=== PATIENT | male | born 1975 ===

== ENCOUNTER 2021-01-13 03:11 | Inpatient (IN) | payer MEDICAID, SELFPAY ==
[2021-01-13 04:51] VITALS: BP 140/104; PULSE 104; RESP 17; TEMP 36.7; O2SAT 97
[2021-01-13 06:00] VITALS: BP 140/104; PULSE 104; RESP 17; TEMP 36.7; O2SAT 97
[2021-01-13] MEDS: thiamine 100 mg Tablet PO (08:31)
[2021-01-13] MEDS: folic acid 1 mg Tablet PO (08:31)
[2021-01-13] MEDS: multivitamin therapeutic Tablet 1 TAB PO (08:31)
[2021-01-13] MEDS: LORazepam 2 mg Tablet PO ×3 (08:31→23:38)
[2021-01-13 12:51] VITALS: BMI 28.2
[2021-01-13 14:00] VITALS: BP 126/80; PULSE 97; RESP 17; TEMP 36.9; O2SAT 97
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
--- NOTE | 2021-01-13 14:43 | PC.NURSE ---
Ativan 2 mg PO administered per CIWA protocol.
[2021-01-13 21:10] VITALS: BP 135/84; PULSE 78; RESP 17; TEMP 36.7; O2SAT 97
[2021-01-13] MEDS: trazodone 50 mg Tablet PO (23:37)
[2021-01-13] MEDS: OLANZapine 5 mg ODT PO (23:38)
[2021-01-14] VITALS (8 sets, daily range): BP systolic 129–182; BP diastolic 91–108; PULSE 106–120; RESP 14–23; TEMP 36.8–37.1; O2SAT 95–96; BMI 28.2
[2021-01-14] MEDS: haloperidol 5 mg Tablet PO ×2 (02:39→13:33)
[2021-01-14] MEDS: LORazepam 2 mg Tablet PO ×4 (04:34→16:42)
[2021-01-14] MEDS: thiamine 100 mg Tablet PO (10:31)
[2021-01-14] MEDS: folic acid 1 mg Tablet PO (10:31)
[2021-01-14] MEDS: multivitamin therapeutic Tablet 1 TAB PO (10:32)
[2021-01-14] MEDS: OLANZapine 5 mg ODT PO (11:58)
--- NOTE | 2021-01-14 12:55 | P.NPUPN_ITS ---
Subjective NPU Subjective: Interval history: Patient presents today being fairly unsteady on his feet, confused in conversation and seeming disoriented at times. He gave no dependable information about his circumstances, current use pattern but was able to identify that he had been drinking and he likely was in withdrawal. Mental Status Exam MSE Comments: This is an overweight white male with limited grooming and eye contact in hospital scrubs. No abnormal movements except for psychomotor retardation and gait instability. Mostly cooperative with exam in mild distress. Speech was decreased rate and volume and with slurring. Mood not described affect confused. Thought process disorganized. Thought content: Patient denied suicidal or homicidal ideation, there were no delusions reported but he seemed somewhat paranoid, he did appear to be attending to internal stimuli likely withdrawal phenomenon. Attention and concentration were impaired and memory was unreliable but none were formally tested. He is alert and oriented to person and place. Insight and judgment are impaired impulse control is impaired. Vitals/I&O/Wt Last Vital Signs Temp 98.0 F 01/13/21 21:10 Pulse 78 01/13/21 21:10 Resp 18 01/14/21 06:00 BP 135/84 01/13/21 21:10 Pulse Ox 97 01/13/21 21:10 Weight last 48 hrs Weight 99.79 kg Weight 99.79 kg A&P Assessment and plan (1) History of seizures: Status: Acute (2) Alcohol withdrawal: Status: Acute (3) Acute psychosis: Status: Acute (4) Alcohol withdrawal delirium: Status: Acute Additional A&P Information This is a 45-year-old white male who presents with altered mental status/psychosis/delirium likely secondary to alcohol withdrawal with reports of some suicidal thoughts but mostly appearing to be out of sorts secondary to discontinuation of alcohol. 1. Continue current medication. 2. Initiate CIWA protocol and be liberal with administration given his presentation. 3. Continue every 15 minute checks for safety. 4. Encourage individual, group and milieu therapies. 5. Encourage sober living treatment after discharge at the highest level of care to which she is willing to commit. Involuntary Hold Information 96 Hour Hold: 96 Hour Involuntary Admission: No Attestations NPU Medical Necessity Statement*: Psychiatric hospitalization is medically necessary to prevent access to lethal means, to reevaluate medication, and to coordinate a safe discharge. Likely length of stay is 3 to 5 days. Coding Level of Care Code Acute Real Estate Appraiser Supervisor for Chg Fwd Diagnoses History of seizures Z87.898 Alcohol withdrawal F10.239 Acute psychosis F23 Alcohol withdrawal delirium F10.231
--- NOTE | 2021-01-14 13:44 | PC.NURSE ---
po haldol 5mg was administered to the pt d/t pt becoming frantic and highly agitated. he tried to open both the single and the double doors, a side door and then took off at a fast jog down the [address]ae[address]. pt balance is poor d/t effects of detox and stability and safety is an issue.
--- NOTE | 2021-01-14 19:51 | PC.NURSE ---
Late Entry Patient has been confused and hallucinating throughout the day. he has been going in other patient's rooms and getting more and more combative throughout the day. Patient has been given a total of 6mg of PO Ativan, Haldol and Zyprexa with no improvement. Dr. Wahl was consulted and will be transferring patient to ICU.
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
--- NOTE | 2021-01-14 21:01 | PC.NURSE ---
TRANSFER IN [facility] Shy transported patient to ICU 9 via wheelchair. Pt slightly fidgety but compliant with transfer.
[2021-01-14] MEDS: PHENobarbital 130 mg/mL SDV 1 mL 60 MG IM ×2 (21:11→21:56)
[2021-01-14] MEDS: folic acid 1 MG, multivitamin inj 10 ML, thiamine 100 MG in sodium chloride 0.9% 1,000 ML 252.8 MG IV (21:41)
[2021-01-14] MEDS: D5-NS 0.45% + KCL 20 mEq 20 MEQ/1,000 ML BAG 75 MEQ IV (21:51)
--- NOTE | 2021-01-14 22:01 | PC.NURSE ---
PIV in FOOT Dr. Quiñonez at bedside and requested PIV insertion in L foot-- multiple BUE sticks unsuccessful. #[address] to L lateral foot-- Dr Quiñonez present. IVF started per orders.
[2021-01-14] MEDS: PHENobarbital 130 mg/mL SDV 1 mL IV ×3 (22:26→23:35)
[2021-01-14] MEDS: diphenhydrAMINE 50 mg/mL SDV 1mL IM (22:34)
--- NOTE | 2021-01-14 22:45 | PC.NURSE ---
PIV insertion #18 guage PIV placed to JEREMÍAS by Dr. Flores. Line flushes and draws back blood. Continuous IVF connected and infusing as ordered.
[2021-01-14 23:26] LABS: Basophils # 0.1 10^3/uL (0.0-0.1); Basophils % 0.5 %; Eosinophils # 0.1 10^3/uL (0.0-0.8); Eosinophils % 1.1 %; Hematocrit 36.7 % (42.0-52.0); Lymphocytes # 1.5 10^3/uL (0.8-4.8); Lymphocytes % 14.2 %; Mean Corpuscular HGB Conc 32.7 g/dL (30.0-36.0); Mean Corpuscular Hemoglobin 34.9 pg (28.0-34.0); Mean Corpuscular Volume 106.7 fl (80-94); Mean Platelet Volume 13.6 fL (7.4-10.4); Monocytes # 1.3 10^3/uL (0.2-0.9); Monocytes % 12.6 %; Neutrophils # 7.31 10^3/uL (1.8-7.7); Neutrophils % 70.4 %; Nucleated Red Blood Cells % 0 %; Platelet Count 71 10^3/cmm (130-400); Red Blood Count 3.44 10^6/uL (4.1-5.3); Red Cell Distribution Width 13.2 % (12.1-15.1); White Blood Count 10.4 10^3/uL (4.0-10.0)
[2021-01-14 23:38] LABS: INR 1.12 (0.8-1.2)
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
[2021-01-15] VITALS (96 sets, daily range): BP systolic 95–169; BP diastolic 66–134; PULSE 62–110; RESP 12–28; TEMP 36.6–37.2; O2SAT 91–100
[2021-01-15 00:13] LABS: Glucose Point of Care 126 mg/dL (70-110)
[2021-01-15] MEDS: PHENobarbital 130 mg/mL SDV 1 mL IV ×9 (00:18→09:31)
--- NOTE | 2021-01-15 00:20 | PC.NURSE ---
REASSESSMENT IM KETAMINE GIVEN DURING CODE 10. PT NOW RESTING CALMLY IN BED-- [address] SKIN TO WRISTS AND ANKLES-- CLEAN, DRY AND INTACT. DR SALTER AT BEDSIDE. PT CONNECTED TO CARDIAC, PULSE OX AND BP MONITOR-- VSS. LABS COLLECTED AND SENT TO LAB.
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
--- NOTE | 2021-01-15 00:49 | PC.NURSE ---
Linked stock med to ordered ketamine IM on MAY. One dose only given
--- NOTE | 2021-01-15 00:55 | W.PM.BREST ---
Face to Face: Restrn/Seclusion Events leading up to initiation: Combative/Striking out at staff or others Evaluation of patient's immediate situation: No signs of physical distress and Signs of psychological distress (still hallucinating, restless, less tachycardic, blood pressure improved) Patient reaction since intervention applied: Behaviors/threats have lessened, but still present Recent labs reviewed: No (no new labs yet but have been drawn) Review of medications: Yes Patient's current medical/behavioral condition: No new concerns since last ROS (same condition and concerns) Need for restraint or seclusion is: Continued Attending notified: Attending completed assessment
[2021-01-15 01:12] LABS: Alanine Aminotransferase 36 U/L (0-41); Alkaline Phosphatase 79 IU/L (40-130); Blood Urea Nitrogen 8 mg/dL (6-20); Calcium 9.2 mg/dL (8.5-10.5); Carbon Dioxide 26 mmol/L (22-29); Chloride 99 mmol/L (98-107); Globulin 2.9 g/dL (1.3-4.6); Glomerular Filtration Rate 180.6 mL/min (90-130); Glucose 100 mg/dL (65-115); Magnesium 1.4 mg/dL (1.7-2.3); Osmolality Calculated 282 mOsm/kg (285-295); Phosphorus 3.8 mg/dL (2.5-4.5); Sodium 137 mmol/L (136-145); Total Protein 6.9 g/dL (6.6-8.7)
[2021-01-15 01:13] LABS: Ammonia 30 umol/L (16-60)
[2021-01-15 01:18] LABS: Anion Gap 16.8 (5-19); Aspartate Amino Transferase 65 U/L (0-40); Potassium 4.8 mmol/L (3.5-5.1)
[2021-01-15 01:19] LABS: Creatine Phosphokinase 1151 U/L (39-308)
--- NOTE | 2021-01-15 01:50 | PC.NURSE ---
REASSESSMENT: PRN PHENOBARBITOL GIVEN Q 15 MINS ORDERED. PT NOW RESTING IN BED WITH EYES CLOSED. VSS. DR. SALTER PRESENT.
--- NOTE | 2021-01-15 01:51 | PC.NURSE ---
REASSESSMENT PT RESTING IN BED WITH EYES CLOSED-- OCCASIONAL PULLING AT RESTRAINTS AND FIDGETING WITH GARBLED SPEECH. DR. SALTER PRESENT. VITAL SIGNS STABLE.
--- NOTE | 2021-01-15 01:56 | PC.NURSE ---
RESTRAINTS PT CALM-- DR SALTER PRESENT. WILL REMOVE L LEG RESTRAINT. SITTER PRESENT AND WILL CONTINUE TO MONITOR.
--- NOTE | 2021-01-15 02:04 | PC.NURSE ---
REASSESSMENT PT RESTING IN BED. VITAL SIGNS STABLE. RESTRAINT REMOVED FROM LEFT ANKLE. SKIN CLEAN, DRY AND INTACT. BILATERAL WRIST RESTRAINTS CHECKED-- NO COMPLICATIONS. KELLEE PRESENT. DR SALTER PRESENT.
--- NOTE | 2021-01-15 02:05 | PC.NURSE ---
Urine Output Pt has not voided. Notified Dr. Quiñonez. No order for ward catheter at this time. Continue to monitor for output.
--- NOTE | 2021-01-15 02:07 | PC.NURSE ---
RESTRAINTS BILATERAL WRIST RESTRAINTS IN PLACE-- NO COMPLICATIONS NOTED SKIN CLEAN, DRY AND INTACT. VITAL SIGNS STABLE. RESPIRATIONS EVEN AND UNLABORED SITTER PRESENT. DR. JOIE GREWAL
--- NOTE | 2021-01-15 04:21 | PC.NURSE ---
AGITATION PT AGITATED, LEGS OVER RAIL AND ATTEMPTING TO PULL AT LINES. TANNER GOODMAN GAVE PHENOBARBITAL ORDERED. DR. SALTER PRESENT. BILATERAL WRIST RESTRAINTS ADJUSTED. SKIN CLEAN, DRY AND INTACT WITH NO REDNESS NOTED. SITTER PRESENT.
[2021-01-15] MEDS: magnesium sulfate premix 2 GM/50 ML PIGGYBACK IV (04:25)
[2021-01-15] MEDS: lactated ringers 1,000 ML 999 ML IV (04:25)
[2021-01-15] MEDS: ondansetron 4 MG Tablet PO (07:52)
[2021-01-15] MEDS: folic acid 1 mg Tablet PO (09:31)
[2021-01-15] MEDS: multivitamin therapeutic Tablet 1 TAB PO (09:31)
[2021-01-15] MEDS: pantoprazole DR 40 mg Tablet PO (09:31)
[2021-01-15] MEDS: thiamine 100 mg Tablet PO (09:31)
[2021-01-15 09:36] LABS: Glucose Point of Care 101 mg/dL (70-110)
--- NOTE | 2021-01-15 11:08 | PC.NURSE ---
Shortly after 8 am, patient woke up. He was restless, agitated, confused, and hallucinating. Stating he was hearing voices which were instructing him to kill himself and telling him that he was worthless. Was also seeing animals in the room and rambling nonsensically about a vacation in [place]. Mood is labile. Sometimes friendly but then quickly becoming agitated and paranoid. Making threats to and talking to people who are not present in the room. Nurse administered PRN phenobarbital as indicated.
--- NOTE | 2021-01-15 11:59 | PC.NURSE ---
Addendum entered by Baltazar Bolanos RN 01/15/21 12:02: Nurse offered the patient something to drin or eat to the patient. Nurse also offered a urinal. Patient declined all. Said he just wants to be let alone Original Note: Nurse offered the patient something to drin or eat to the patient. Patient declined. Said he just wants to be let alone.
[2021-01-15 12:01] LABS: Glucose Point of Care 79 mg/dL (70-110)
[2021-01-15] MEDS: D5-NS 0.45% + KCL 20 mEq 20 MEQ/1,000 ML BAG 75 MEQ IV (13:57)
--- NOTE | 2021-01-15 16:10 | P.NPUPN_ITS ---
Subjective NPU Subjective: Interval history: Patient presents today appearing to be tired likely secondary to his medication and his continuing withdrawal. Had a chance to talk with his nurse who reported significant agitation the night before with need for medication intervention including ketamine. After a trial of phenobarbital. This morning he received morphine barbital with industrial engineering a gitation and has been more calm through the day. We discussed a plan for him to return to the psychiatric unit once he was medically stable and that we would continue to follow. Mental Status Exam MSE Comments: This is a overweight versus obese white male in hospital gown with no eye contact and limited grooming. No abnormal movements except for psychomotor retardation. He was not interactive during the exam did not respond to this magnetic tape typewriter operator's vocalizations or physical contact. No aggressive means were undertaken. Vitals/I&O/Wt Last Vital Signs Temp 97.8 F 01/15/21 16:00 Pulse 79 01/15/21 16:00 Resp 20 H 01/15/21 16:00 BP 121/93 01/15/21 16:00 Pulse Ox 100 01/15/21 16:00 01/15/21 14:59 Intake Total 1000 / 1000 Balance 1000 / 1000 Weight last 48 hrs Weight 99.79 kg Data NPU : 01/14/21 23:05 01/16/21 04:41 A&P Additional A&P Information (1) History of seizures: (2) Alcohol withdrawal: (3) Acute psychosis: (4) Alcohol withdrawal delirium: Additional A&P Information This is a 45-year-old white male who presents with altered mental status/psychosis/delirium likely secondary to alcohol withdrawal with reports of some suicidal thoughts but mostly appearing to be out of sorts secondary to discontinuation of alcohol who was transferred to the ICU yesterday after this magnetic tape typewriter operator requested consultation. For increasing concerns that his alcohol withdrawal needed more aggressive management. 1. Continue current medication. 2. Agree with continued phenobarbital and other measures to manage his serious alcohol withdrawal. 3. I will continue to follow and likely transfer back to neuropsychiatric unit when medically stable. 4. Appreciate hospitalist assessment intervention and continued management of his alcohol withdrawal. 5. Encourage sober living treatment after discharge at the highest level of care to which he is willing to commit. Involuntary Hold Information 96 Hour Hold: 96 Hour Involuntary Admission: No Attestations NPU Medical Necessity Statement*: N/A. Please see primary team note for medical necessity, however likely need for continued inpatient acute psychiatric treatment after medically stable from his alcohol withdrawal. Coding Level of Care Code Acute Group Contract Analyst for Sujey Jon
--- NOTE | 2021-01-15 16:16 | P.PN_ITS ---
Subjective Subjective: Interval history: Overnight recurrent events noted. He was able to tell me that he drinks half a pint of vodka every day and here for detox has history of DTs, had limb restraints, becomes agitated easily, For now continue phenobarbital mild to moderate 130 mg every 30 minutes to 1 hour, severe withdrawal 260 mg IV every hour Hallucination reported by the staff as well, no nystagmus noted, gait was not tested Patient stated that he has no family and when I asked about emergency contact info he moved his neck to show the number tattooed on right side of the neck Vitals/I&O/Wt Last Vital Signs Temp 97.9 F 01/15/21 12:00 Pulse 71 01/15/21 13:00 Resp 14 01/15/21 13:00 BP 111/83 01/15/21 13:00 Pulse Ox 98 01/15/21 13:00 01/15/21 01/15/21 01/15/21 06:59 14:59 22:59 Intake Total 2061.2 / 2061.2 1000 / 1000 Balance 2061.2 / 2061.2 1000 / 1000 Weight last 48 hrs Weight 99.79 kg Physical Exam Narrative: EXAM NARRATIVE: Patient was seen in the ICU Does not have active coarse tremors or seizures Positive for hallucinations Active delirium with psychotic features S1, S2 sinus rhythm He is not tachycardic or hypotensive He would not allow me to examine him, gets easily agitated as soon as he put sure hand on his abdomen or chest Abdomen grossly looks normal complaint abdominal pain Patient does respond to verbal commands Answers my questions appropriately No audible stridor or wheezing Saturating well on room air Multiple skin tattoos Data : 01/14/21 23:05 01/15/21 00:48 A&P Assessment and plan (1) History of seizures: Status: Chronic (2) Alcohol withdrawal delirium: Status: Acute (3) Acute psychosis: Status: Acute (4) Aggressive behavior: Status: Acute Additional A&P Information Acute psychosis with underlying bipolar disorder/major depressive disorder Alcohol abuse Aggressive behavior Delirium related to alcohol withdrawal Wernicke's encephalopathy? Plan Phenobarbital for alcohol withdrawal 130 mg for mild to moderate every 30 minutes to 1 hour for severe withdrawal to 60 mg every 30 minutes to 1 hour Use phenobarbital and avoid Ativan for now to avoid oversedation Continue thiamine and folic acid If hallucination and delirium does not improve in the next 48 hours would consider encephalopathy work-up Continue ICU management High risk for DTs, high risk for intubation We will keep him on clear liquid diet for now Full code For major depressive disorder/bipolar will follow-up with psychiatry recommendation 96-hour hold Would avoid more than 30mg/kg dose to avoid phenobarb toxicity Attestations Medical Necessity Statement*: Continue icu mangement Time Spent in Patient Care: 16 - 35 minutes Coding Level of Care Code Acute Full Stack Net Developer for Sujey Jon Diagnoses History of seizures Z87.898 Alcohol withdrawal delirium F10.231 Acute psychosis F23 Aggressive behavior R46.89
--- NOTE | 2021-01-15 16:20 | PC.RESP ---
SMOKING CESSATION INFORMATION SENT TO PATIENT.
[2021-01-15 17:04] LABS: Glucose Point of Care 84 mg/dL (70-110)
--- NOTE | 2021-01-15 18:03 | PC.NURSE ---
Shift Summary: Patient rested in bed throughout most of the day. Initially, patient was agitated and hallucinating. Phenobarbital given as indicated. Last dose was given at 0930. Patient has rested in bed since then. Has has been withdrawn and depressed throughout the day. Did use the urinal this morning and had 100mL of output. Patient has refused meals throughout the day.
[2021-01-15] MEDS: PHENobarbital 32.4 mg Tablet 97.2 MG PO (23:38)
[2021-01-16] VITALS (62 sets, daily range): BP systolic 105–147; BP diastolic 63–109; PULSE 76–111; RESP 14–31; TEMP 36.9–37.3; O2SAT 93–100; BMI 28.7
[2021-01-16] MEDS: D5-NS 0.45% + KCL 20 mEq 20 MEQ/1,000 ML BAG 75 MEQ IV (02:13)
--- NOTE | 2021-01-16 02:21 | PC.NURSE ---
Shift Note Frequent safety and comfort rounds continue. Orders and/or nursing care completed as indicated. Patient monitored for response to intervention and treatment(s). Education provided includes fall safety, do no harm to staff or self, medications with side effects, orientation, compliance with care, goals of care. Patient slept good first part of shift, wet bed and when awakened he became very tearful expressing the sadness it brought upon him when reflecting on the pain he has caused his family and vis versa. This nurse sat at beside and listened to concerns. After this nurse was able use distraction to deescalate increasingly expressive feelings and agitation by asking patient if he was thirsty and would like to change wet clothing and linens. Security called to bedside for standby assist if needed when behaviors started to escalate. Pt cooperative with care with redirection and education. Patient did state stop, let me try to kill myself. This nurse again redirected patient to calm and reeducated on do no harm to self or staff. Patient would not verbalize understanding of this but stopped fidgeting and sat on edge of bed till calm enough to proceed with changing linens and wet clothes. Patient than transferred back to bed and when clean and dry patient started to relax and was able to rest with his eyes closed again. Will continue to monitor.
[2021-01-16 04:58] LABS: Glucose Point of Care 253 mg/dL (70-110)
[2021-01-16 05:08] LABS: Basophils # 0.1 10^3/uL (0.0-0.1); Basophils % 0.6 %; Eosinophils # 0.3 10^3/uL (0.0-0.8); Eosinophils % 3.1 %; Hematocrit 34.2 % (42.0-52.0); Lymphocytes # 1.2 10^3/uL (0.8-4.8); Lymphocytes % 14.8 %; Mean Corpuscular HGB Conc 32.2 g/dL (30.0-36.0); Mean Corpuscular Hemoglobin 35.1 pg (28.0-34.0); Mean Corpuscular Volume 109.3 fl (80-94); Mean Platelet Volume 11.7 fL (7.4-10.4); Monocytes % 12.3 %; Neutrophils # 5.71 10^3/uL (1.8-7.7); Neutrophils % 67.9 %; Nucleated Red Blood Cells % 0 %; Platelet Count 134 10^3/cmm (130-400); Red Blood Count 3.13 10^6/uL (4.1-5.3); White Blood Count 8.4 10^3/uL (4.0-10.0)
[2021-01-16 05:23] LABS: Alanine Aminotransferase 27 U/L (0-41); Albumin Level 3.1 g/dL (3.5-5.2); Alkaline Phosphatase 65 IU/L (40-130); Aspartate Amino Transferase 34 U/L (0-40); Blood Urea Nitrogen 6 mg/dL (6-20); Calcium 7.9 mg/dL (8.5-10.5); Carbon Dioxide 23 mmol/L (22-29); Globulin 2.7 g/dL (1.3-4.6); Glomerular Filtration Rate 233.7 mL/min (90-130); Glucose 121 mg/dL (65-115); Magnesium 1.7 mg/dL (1.7-2.3); Phosphorus 3.3 mg/dL (2.5-4.5); Total Bilirubin 0.6 mg/dL (0.15-1.2); Total Protein 5.8 g/dL (6.6-8.7)
[2021-01-16 05:26] LABS: Potassium 3.7 mmol/L (3.5-5.1)
[2021-01-16 06:19] LABS: Anion Gap 11.7 (5-19); Chloride 103 mmol/L (98-107); Osmolality Calculated 277 mOsm/kg (285-295); Sodium 134 mmol/L (136-145)
[2021-01-16 06:22] LABS: Creatine Phosphokinase 349 U/L (39-308)
[2021-01-16 07:51] LABS: Slide Review Slide Review Perform
[2021-01-16] MEDS: multivitamin therapeutic Tablet 1 TAB PO (08:59)
[2021-01-16] MEDS: folic acid 1 mg Tablet PO (08:59)
[2021-01-16] MEDS: thiamine 100 mg Tablet PO (08:59)
[2021-01-16] MEDS: pantoprazole DR 40 mg Tablet PO (08:59)
--- NOTE | 2021-01-16 15:01 | PC.NURSE ---
Family contact: Spoke to patient's mother today at [phone]. received okay form patient to give her information. Nurse gave status update. Currently stable. Withdrawn symptoms have subsided and medication no longer needed to manage symptoms. XUrrently waiting on transfer orders to go to NPU. Patient is on a 96 hour hold due to suicidal threats
--- NOTE | 2021-01-16 15:10 | PC.NURSE ---
SHift SUmmary: patient has rested in bed throughout the day. Slept most of the time. No hallucinations reported. No agitation. No signs of withdrawal noted. Family has been updated. overall, uneventful shift.
--- NOTE | 2021-01-16 16:47 | P.PN_ITS ---
Subjective Subjective: Interval history: Patient is not requiring wrist restraints anymore, overnight was relatively calm still experiencing hallucinations however this morning endorsing feeling better and very cooperative and pleasant during my evaluation He can be transferred out to you today I have discontinued IV phenobarbital he did receive total of 1800 mg I would keep him on 100 mg of phenobarbital p.o. regimen in neuropsychiatric unit Dr. Quinonez updated Vitals/I&O/Wt Last Vital Signs Temp 99.2 F 01/16/21 08:45 Pulse 95 01/16/21 15:00 Resp 25 H 01/16/21 15:00 BP 121/73 01/16/21 15:00 Pulse Ox 97 01/16/21 15:00 01/16/21 01/16/21 01/16/21 06:59 14:59 22:59 Intake Total 920 / 1920 1750 / 1750 Output Total 800 / 800 Balance 920 / 1920 950 / 950 Physical Exam Narrative: EXAM NARRATIVE: Patient was laying supine No audible stridor or wheezing Coarse tremors noted of extremities No seizure-like activity Able to answer my questions appropriately Nonfocal neuro exam S1, S2 sinus rhythm Hemodynamically stable Multiple skin tattoos EOMI, PERRLA Abdomen soft Has bruise around right fifth digit no active sign of cellulitis Data : 01/16/21 04:41 01/16/21 04:41 A&P Assessment and plan (1) Aggressive behavior: Status: Acute (2) History of seizures: Status: Chronic (3) Nicotine dependence, cigarettes, uncomplicated: Status: Chronic (4) Alcohol withdrawal delirium: Status: Acute (5) Acute psychosis: Status: Acute Additional A&P Information Alcohol withdrawal Coarse tremors Psychosis/delirium Patient has responded exceptionally well to phenobarbital IV regimen, I will transfer him out of ICU to neuro psychiatric unit, Dr. Urena updated For his mild withdrawal symptoms I would keep him on 100 mg of phenobarbital p.o. regimen which can be repeated every 2 hours in next 24 hours if he stays clinically stable will change phenobarbital to twice a day regimen, I will follow along Continue thiamine and folic acid for alcohol-related delirium Phenobarbital level within normal range I would avoid benzodiazepines to avoid oversedation Regular diet Discontinue one-to-one supervision Full code DVT prophylaxis: Lovenox Right fifth digit bruised most likely during code 10 no active sign of ce llulitis, in case of any swelling would recommend x-ray Attestations Medical Necessity Statement*: Transfer to npu Time Spent in Patient Care: 16 - 35 minutes Coding Level of Care Code Acute Human Resources Operations Specialist for Sujey Fwd Diagnoses Aggressive behavior R46.89 History of seizures Z87.898 Nicotine dependence, cigarettes, uncomplicated F17.210 Alcohol withdrawal delirium F10.231 Acute psychosis F23
--- NOTE | 2021-01-16 19:02 | PC.NURSE ---
report given to Barbara at NPU. Transferred patient to NPU via wheel chair. IV line removed. Monitoring devices removed. Patient is in green scrubs. Transfer to NPU was uneventful.
--- NOTE | 2021-01-16 21:15 | P.NPUPN_ITS ---
Subjective NPU Subjective: Interval history: Patient presents today having been transferred back to the neuropsychiatric unit clearly having thoughts about this time they are there peppered with his delirium reporting some girl in [place] not treating him well. But also identifying that he does not remember parts of it. He does remember them giving him ketamine or initiating phenobarbital to help him with his spiraling withdrawal. He continues to see the last 96 hours as him being fairly normal and people deciding to intervene with him when it was unnecessary. We discussed trying to separate what his psychosis and what was delirium and consider what we need to do with his medication moving forward with some possible collateral information from his family. Mental Status Exam MSE Comments: This is an overweight white male with limited grooming and eye contact in hospital scrubs. No abnormal movements except for psychomotor retardation. Mostly cooperative with exam in mild distress. Speech was decreased rate and volume and with less slurring. Mood described as I am fine as long as no one is messing with me, affect confused. Thought process more organized. Thought content: Patient denied suicidal or homicidal ideation, there were no delusions reported but he seemed somewhat paranoid, he denied current auditory or visual hallucinations. Attention and concentration were improving and memory was unreliable but none were formally tested. He is alert and oriented to person and place. Insight and judgment are impaired impulse control is impaired. Vitals/I&O/Wt Last Vital Signs Temp 99.2 F 01/16/21 08:45 Pulse 95 01/16/21 15:00 Resp 25 H 01/16/21 15:00 BP 121/73 01/16/21 15:00 Pulse Ox 97 01/16/21 15:00 01/16/21 01/16/21 01/16/21 06:59 14:59 22:59 Intake Total 920 / 1920 1750 / 1750 600 / 2350 Output Total 800 / 800 Balance 920 / 1920 950 / 950 600 / 1550 Weight last 48 hrs Weight 90.718 kg Data NPU : 01/16/21 04:41 01/16/21 04:41 A&P Additional A&P Information (1) History of seizures: (2) Alcohol withdrawal: (3) Acute psychosis: (4) Alcohol withdrawal delirium: Additional A&P Information This is a 45-year-old white male who presents with altered mental stat us/psychosis/delirium likely secondary to alcohol withdrawal with reports of some suicidal thoughts but mostly appearing to be out of sorts secondary to discontinuation of alcohol who was transferred to the ICU yesterday after this creative services writer requested consultation. For increasing concerns that his alcohol withdrawal needed more aggressive management. 1. Continue current medication. We will attempt to get a better sense of his history with antipsychotics and out of best assist is current mental health functioning. 2. Continue every 15 minute checks for safety. 3. Encourage individual, group and milieu therapies. 4. Encourage sober living treatment after discharge at the highest level of ca re to which he is willing to commit. 5. Agree with continued phenobarbital and other measures to manage his serious alcohol withdrawal. . Involuntary Hold Information 96 Hour Hold: 96 Hour Involuntary Admission: No Attestations NPU Medical Necessity Statement*: Psychiatric hospitalization is medically necessa ry to prevent access to lethal means, to reevaluate medication, and to coordinate a safe discharge. Likely length of stay is 3 to 5 days. Coding Level of Care Code Acute Search Director for Sujey Jon
--- NOTE | 2021-01-16 21:27 | PC.NURSE ---
Nurse note: During assessment this evening; Pt c/o visual hallucinations stating that he sees all kinds of critters everywhere. Denies SI or HI. Slight tremors noted in hands(barely visible, more felt.) Currently sitting quietly in hallway. Denies needs at this time.
[2021-01-17 06:00] VITALS: BP 132/88; PULSE 67; RESP 17; O2SAT 95
[2021-01-17] MEDS: LORazepam 2 mg Tablet PO (10:44)
[2021-01-17] MEDS: thiamine 100 mg Tablet PO (10:44)
[2021-01-17] MEDS: pantoprazole DR 40 mg Tablet PO (10:45)
[2021-01-17] MEDS: folic acid 1 mg Tablet PO (10:45)
[2021-01-17] MEDS: multivitamin therapeutic Tablet 1 TAB PO (10:45)
[2021-01-17] MEDS: haloperidol 5 mg Tablet PO (10:48)
--- NOTE | 2021-01-17 11:12 | NPU.GN ---
[facility] Topic: Meditation Psych Education General Mood of Group: Yared did attend group this morning and did participate in meditation group. Yared shared a bit about himself with this investigative writer and the rest of t he patients in group. Yared was interested in [facility] services this investigative writer assisted patient in filling out the intake form for [facility] services. Intake packet for this patient is completed. Yared was observed this morning being in pain and having a hard time walking. Yared did report that he did not get his medication last night or this morning for pain or for his mental health. It was reported back to nursing staff about this patient wanting his medications. Yared seems as though he does not have much support or stability within his life and is at NPU to get on psych medications and to get clean. This investigative writer did mention [facility] program as well to this patient. This patient needs all resources that are available to him to assists him in stability and a better quality of living for his physical, mental health diagnosis, food stamps, housing, therapist, and ect. Yared does need to work on his hygiene as is was poor this morning.
[2021-01-17] MEDS: acetaminophen 500 mg Tablet PO (12:51)
[2021-01-17] MEDS: nicotine 21 mg Patch 1 PATCH TRANSDERMA (12:51)
--- NOTE | 2021-01-17 13:28 | PC.NURSE ---
PATIENT REPORTING HE TAKES THE FOLLOWING MEDICATIONS TO CONTROL A SEIZURE DISORDER: HALDOL 1MG DAILY, SEROQUEL 50MG BID AND DEPAKOTE 50MG DAILY. HE IS NOT ABLE TO GIVE ME PHARMACY OR PHYSICIAN THAT HE HAS USED TO GET THE MEDICATIONS FILLED. HE STATES HE HAS LAST HAD THEM FROM THE [facility]. GOOGLED [facility] #[phone] AND THEY HAVE NEVER HAD A PIERRE GEORGEDLER BOOKED IN TO THEIR ASSISTED. PATIENT IS LISTED HOMELESS AND REPORTS TRAVELS BY JUMPING TRAINS AND DOES NOT HAVE A PRIVATE PHYSICIAN.
[2021-01-17 14:00] VITALS: BP 115/72; PULSE 71; RESP 18; TEMP 36.8; O2SAT 96
--- NOTE | 2021-01-17 17:43 | W.PM.NPUPNS ---
Subjective NPU Subjective: Interval history: Patient presents today reporting that we have been helping with his withdrawal but he is hoping to help him with his psychiatric condition. He can give no clear information about where he got his prescription filled but he does believe he was on Haldol before, cerebral before and possibly Depakote. We discussed the risk-benefit and alternatives of a trial of Geodon and he understood agreed proceed as documented in his note. Mental Status Exam MSE Comments: This is an overweight white male with limited grooming and eye contact in hospital scrubs. No abnormal movements except for psychomotor retardation. Mostly cooperative with exam in mild distress. Speech was decreased rate and volume and with less slurring. Mood described okay, affect confused. Thought process more organized. Thought content: Patient denied suicidal or homicidal ideation, there were no delusions reported but he seemed somewhat paranoid, he denied current auditory or visual hallucinations. Attention and concentration were improving and memory was unreliable but none were formally tested. He is alert and oriented to person and place. Insight and judgment are impaired impulse control is impaired. Vitals/I&O/Wt Last Vital Signs Temp 98.8 F 01/17/21 20:32 Pulse 69 01/17/21 20:32 Resp 19 H 01/17/21 20:32 BP 119/82 01/17/21 20:32 Pulse Ox 97 01/17/21 20:32 Weight last 48 hrs Weight 90.718 kg Data NPU : 01/16/21 04:41 01/16/21 04:41 A&P Additional A&P Information (1) History of seizures: (2) Alcohol withdrawal: (3) Acute psychosis: (4) Alcohol withdrawal delirium: Additional A&P Information This is a 45-year-old white male who presents with altered mental status/psychosis/delirium likely secondary to alcohol withdrawal with reports of some suicidal thoughts but mostly appearing to be out of sorts secondary to discontinuation of alcohol who was transferred to the ICU yesterday after this blurb writer requested consultation. For increasing concerns that his alcohol withdrawal needed more aggressive management. 1. Continue current medication. start geodon 40 mg po bid with meals. 2. Continue every 15 minute checks for safety. 3. Encourage individual, group and milieu therapies. 4. Encourage sober living treatment after discharge at the highest level of care to which he is willing to commit. 5. Agree with continued phenobarbital and other measures to manage his serious alcohol withdrawal. Involuntary Hold Information 96 Hour Hold: 96 Hour Involuntary Admission: No Attestations NPU Medical Necessity Statement*: Psychiatric hospitalization is medically necessary to prevent access to lethal means, to reevaluate medication, and to coordinate a safe discharge. Likely length of stay is 2-4 days. Coding Level of Care Code Acute Poison Information Specialist for Sujey Jon
[2021-01-17 20:32] VITALS: BP 119/82; PULSE 69; RESP 19; TEMP 37.1; O2SAT 97
[2021-01-17] MEDS: OLANZapine 5 mg ODT PO (21:15)
[2021-01-17] MEDS: hyDROXYzine 25 mg Capsule 50 MG PO (21:15)
--- NOTE | 2021-01-17 23:47 | PC.NURSE ---
Administered hydroxyzine 50mg PO for anxiety and zyprexa 5mg PO for agitation per patient request. Medication effective, patient resting with eyes closed in bed with equal, nonlabored respirations
--- NOTE | 2021-01-18 04:03 | PC.NURSE ---
Patient in bed but tense and anxious upon approach at start of shift. Cooperative with evening assessments. Endorses AH, command in nature, telling him to hurt self. Declines any intent or urges to act on this. Did state he would like PRNs to help. Contracted for safety. Patient did take PRN medications. Has been in bed resting with eyes closed throughout remainder of night. No further complaints voiced. No signs of distress noted.
[2021-01-18 06:00] VITALS: BP 117/71; PULSE 73; RESP 18; TEMP 36.9; O2SAT 96
[2021-01-18] MEDS: multivitamin therapeutic Tablet 1 TAB PO (09:50)
[2021-01-18] MEDS: pantoprazole DR 40 mg Tablet PO (09:50)
[2021-01-18] MEDS: thiamine 100 mg Tablet PO (09:51)
[2021-01-18] MEDS: folic acid 1 mg Tablet PO (09:51)
[2021-01-18] MEDS: ziprasidone hcl 40 mg Capsule PO ×2 (09:51→17:14)
--- NOTE | 2021-01-18 11:56 | NPU.GN ---
[facility] Topic:Meditation/ Depression Nilo General Mood of Group: Yared did attend group today and did very well. He participated in group with others and enjoyed the meditation and group activity. Yared seem to be in a good mood today and mentally stable.
[2021-01-18 14:00] VITALS: BP 136/94; PULSE 93; RESP 18; TEMP 36.6; O2SAT 98
--- NOTE | 2021-01-18 17:00 | P.NPUPN_ITS ---
Subjective NPU Subjective: Interval history: Patient presents today reporting that he is doing okay with the Geodon with no side effects but was very focused on other medications that he feels have been effective for him. He reports he always did really well with the Depakote. We discussed the risk benefits and alternatives of initiating Depakote ER 500 mg p.o. nightly and he understood and agreed to proceed as is documented in this note. We discussed holding on the Haldol and checking the records of [facility]intermediate to see what the medications were exactly. He was lobbying for all medications being started at once but could not give clarity as to the doses. Mental Status Exam MSE Comments: This is an overweight white male with limited grooming and eye contact in hospital scrubs. No abnormal movements except for psychomotor retardation. Mostly cooperative with exam in mild distress. Speech was decreased rate and volume and with less slurring. Mood described I am here, affect subdued. Thought process more organized. Thought content: Patient denied suicidal or homicidal ideation, there were no delusions reported but he seemed somewhat paranoid, he denied current auditory or visual hallucinations. Attention and concentration were improving and memory was unreliable but none were formally tested. He is alert and oriented to person and place. Insight and judgment are impaired impulse control is impaired. Vitals/I&O/Wt Last Vital Signs Temp 97.6 F 01/18/21 21:12 Pulse 87 01/18/21 21:12 Resp 17 01/18/21 21:12 BP 118/74 01/18/21 21:12 Pulse Ox 96 01/18/21 21:12 Data NPU : 01/16/21 04:41 01/16/21 04:41 A&P Additional A&P Information (1) History of seizures: (2) Alcohol withdrawal: (3) Acute psychosis: (4) Alcohol withdrawal delirium: Additional A&P Information This is a 45-year-old white male who presents with altered mental status/psychosis/delirium likely secondary to alcohol withdrawal with reports of some suicidal thoughts but mostly appearing to be out of sorts secondary to discontinuation of alcohol who was transferred to the ICU yesterday after this insurance writer requested consultation. For increasing concerns that his alcohol withdrawal needed more aggressive management. 1. Continue current medication. Started Geodon 40 mg p.o. twice daily with meals. And Depakote ER 500 mg p.o. nightly on 01/18/2021 2. Continue every 15 minute checks for safety. 3. Encourage individual, group and milieu therapies. 4. Encourage sober living treatment after discharge at the highest level of care to which he is willing to commit. 5. Agree with continued phenobarbital and other measures to manage his serious alcohol withdrawal. Involuntary Hold Information 96 Hour Hold: 96 Hour Involuntary Admission: No Attestations NPU Medical Necessity Statement*: Psychiatric hospitalization is medically necessary to prevent access to lethal means, to reevaluate medication, and to coordinate a safe discharge. Likely length of stay is 2-4 days. Coding Level of Care Code Acute Bank Credit Card Collection Clerk for Sujey Jon
[2021-01-18] MEDS: divalproex ER 500 mg Tablet (24H) PO (20:12)
[2021-01-18] MEDS: OLANZapine 5 mg ODT PO (20:12)
[2021-01-18 21:12] VITALS: BP 118/74; PULSE 87; RESP 17; TEMP 36.4; O2SAT 96
[2021-01-19 06:00] VITALS: RESP 17
[2021-01-19] MEDS: ziprasidone hcl 40 mg Capsule PO ×2 (06:44→17:19)
[2021-01-19] MEDS: folic acid 1 mg Tablet PO (08:58)
[2021-01-19] MEDS: pantoprazole DR 40 mg Tablet PO (08:58)
[2021-01-19] MEDS: multivitamin therapeutic Tablet 1 TAB PO (08:58)
[2021-01-19] MEDS: thiamine 100 mg Tablet PO (08:58)
--- NOTE | 2021-01-19 13:37 | NPU.GN ---
[facility] Topic:[place] Psych Education General Mood of Group: Yared did not attend group this morning he wanted to sleep.
[2021-01-19 14:00] VITALS: BP 123/75; PULSE 87; RESP 17; TEMP 37.8; O2SAT 94
--- NOTE | 2021-01-19 16:54 | W.PM.NPUPNS ---
Subjective NPU Subjective: Interval history: Patient is today reporting that things are going okay. He continues to be quite frustrated that we did just medications he mentioned Augmentin that he believes he was on before and just move on. We discussed the process by which we initiate medications for people have been on for a while. We also have made attempts to try to verify the fact these medications he had been taking in the past. We discussed the fact that outside Haldol with the initiation of Seroquel 50 mg p.o. twice daily discussed the risk benefits and alternatives and he understood and agreed proceed as is documented in this note, the only thing he has been started on is the Haldol. Currently he is on Geodon and we discussed seeing if it would be effective before possibly switching it out for Haldol. And given the significant withdrawal he was experiencing there are other more important issues in his treatment in the beginning. Mental Status Exam MSE Comments: This is an overweight white male with limited grooming and eye contact in hospital scrubs. No abnormal movements except for psychomotor retardation. Mostly cooperative with exam in no acute distress. Speech was decreased rate and volume and with less slurring. Mood described frustrated, affect congruent. Thought process more organized. Thought content: Patient denied suicidal or homicidal ideation, there were no delusions reported but he seemed somewhat paranoid, he endorsed current auditory but denied visual hallucinations. Attention and concentration were improving and memory was more reliable but none were formally tested. He is alert and oriented x3. Insight and judgment are improving, impulse control is limited. Vitals/I&O/Wt Last Vital Signs Temp 98.0 F 01/19/21 21:57 Pulse 103 H 01/19/21 21:57 Resp 18 01/19/21 21:57 BP 139/94 01/19/21 21:57 Pulse Ox 96 01/19/21 21:57 Data NPU : 01/16/21 04:41 01/16/21 04:41 A&P Additional A&P Information (1) History of seizures: (2) Alcohol withdrawal: (3) Acute psychosis: (4) Alcohol withdrawal delirium: Additional A&P Information This is a 45-year-old white male who presents with altered mental status/psychosis/delirium likely secondary to alcohol withdrawal with reports of some suicidal thoughts but mostly appearing to be out of sorts secondary to discontinuation of alcohol who was transferred to the ICU yesterday after this pattern chart writer requested consultation. For increasing concerns that his alcohol withdrawal needed more aggressive management. 1. Continue current medication. Started Geodon 40 mg p.o. twice daily with meals. And Depakote ER 500 mg p.o. nightly on 01/18/2021. Started Seroquel 50 mg p.o. twice daily. 2. Continue every 15 minute checks for safety. 3. Encourage individual, group and milieu therapies. 4. Encourage sober living treatment after discharge at the highest level of care to which he is willing to commit. 5. Agree with continued phenobarbital and other measures to manage his serious alcohol withdrawal. Involuntary Hold Information 96 Hour Hold: 96 Hour Involuntary Admission: No Attestations NPU Medical Necessity Statement*: Psychiatric hospitalization is medically necessary to prevent access to lethal means, to reevaluate medication, and to coordinate a safe discharge. Likely length of stay is 2-4 days. Coding Level of Care Code Acute Line Tester for Sujey Jon
[2021-01-19] MEDS: divalproex ER 500 mg Tablet (24H) PO (20:13)
[2021-01-19] MEDS: OLANZapine 5 mg ODT PO (20:14)
[2021-01-19] MEDS: trazodone 50 mg Tablet PO (20:14)
[2021-01-19] MEDS: quetiapine 25 mg Tablet 50 MG PO (20:49)
[2021-01-19 21:57] VITALS: BP 139/94; PULSE 103; RESP 18; TEMP 36.7; O2SAT 96
[2021-01-20 06:00] VITALS: RESP 16
[2021-01-20] MEDS: ziprasidone hcl 40 mg Capsule PO ×2 (06:38→18:16)
--- NOTE | 2021-01-20 08:00 | W.PM.NPUPNS ---
Subjective NPU Subjective: Interval history: Patient continues his focus on medications. He reports a plan to get back to work and productivity and was trying to ensure that he was on his medications now. We discussed the plan to see how he does on the Geodon with his other medications on board to avoid him being on an older medication like Haldol. We did discuss that if he really was feeling like the Geodon was not effective communication then could ultimately make a change prior to discharge. Mental Status Exam MSE Comments: This is an overweight white male with limited grooming and eye contact in hospital scrubs. No abnormal movements except for mild psychomotor retardation. Mostly cooperative with exam in no acute distress. Speech was more normal rate and volume. Mood described still frustrated, affect congruent. Thought process more organized. Thought content: Patient denied suicidal or homicidal ideation, there were no delusions reported but he seemed somewhat paranoid, he endorsed current auditory but denied visual hallucinations. Attention and concentration were improving and memory was more reliable but none were formally tested. He is alert and oriented x3. Insight and judgment are improving, impulse control is limited. Vitals/I&O/Wt Last Vital Signs Temp 98.0 F 01/19/21 21:57 Pulse 103 H 01/19/21 21:57 Resp 16 01/20/21 06:00 BP 139/94 01/19/21 21:57 Pulse Ox 96 01/19/21 21:57 Data NPU : 01/16/21 04:41 01/16/21 04:41 A&P Additional A&P Information (1) History of seizures: (2) Alcohol withdrawal: (3) Acute psychosis: (4) Alcohol withdrawal delirium: Additional A&P Information This is a 45-year-old white male who presents with altered mental status/psychosis/delirium likely secondary to alcohol withdrawal with reports of some suicidal thoughts but mostly appearing to be out of sorts secondary to discontinuation of alcohol who was transferred to the ICU yesterday after this magazine writer requested consultation. For increasing concerns that his alcohol withdrawal needed more aggressive management. 1. Continue current medication. Started Geodon 40 mg p.o. twice daily with meals. And Depakote ER 500 mg p.o. nightly on 01/18/2021. Seroquel 50 mg p.o. twice daily . 2. Continue every 15 minute checks for safety. 3. Encourage individual, group and milieu therapies. 4. Encourage sober living treatment after discharge at the highest level of care to which he is willing to commit. 5. Alcohol withdrawal has resolved. Involuntary Hold Information 96 Hour Hold: 96 Hour Involuntary Admission: No Attestations NPU Medical Necessity Statement*: Psychiatric hospitalization is medically necessary to prevent access to lethal means, to reevaluate medication, and to coordinate a safe discharge. Likely length of stay is 2-3 days. Coding Level of Care Code Acute Fermenting Cellars Supervisor for Sujey Jon
[2021-01-20] MEDS: quetiapine 25 mg Tablet 50 MG PO ×2 (10:38→18:16)
[2021-01-20] MEDS: folic acid 1 mg Tablet PO ×2 (10:39→11:09)
[2021-01-20] MEDS: multivitamin therapeutic Tablet 1 TAB PO (10:39)
[2021-01-20] MEDS: pantoprazole DR 40 mg Tablet PO (10:39)
[2021-01-20] MEDS: nicotine 21 mg Patch 1 PATCH TRANSDERMA (11:08)
[2021-01-20] MEDS: thiamine 100 mg Tablet PO (11:10)
[2021-01-20 14:00] VITALS: RESP 17
[2021-01-20] MEDS: divalproex ER 500 mg Tablet (24H) PO (20:06)
[2021-01-20] MEDS: hyDROXYzine 25 mg Capsule 50 MG PO (20:06)
[2021-01-20] MEDS: trazodone 50 mg Tablet PO (20:07)
[2021-01-20 22:00] VITALS: BP 137/92; PULSE 97; RESP 16; TEMP 36.7; O2SAT 97
[2021-01-21 06:00] VITALS: BP 120/77; PULSE 74; RESP 17; TEMP 36.6; O2SAT 96
[2021-01-21] MEDS: ziprasidone hcl 40 mg Capsule PO ×2 (06:05→17:00)
[2021-01-21] MEDS: thiamine 100 mg Tablet PO (09:25)
[2021-01-21] MEDS: quetiapine 25 mg Tablet 50 MG PO ×2 (09:25→18:23)
[2021-01-21] MEDS: pantoprazole DR 40 mg Tablet PO (09:26)
[2021-01-21] MEDS: multivitamin therapeutic Tablet 1 TAB PO (09:26)
[2021-01-21] MEDS: loperamide 2 mg Capsule PO (13:11)
--- NOTE | 2021-01-21 13:49 | W.PM.NPUPNS ---
Subjective NPU Subjective: Interval history: Patient presents today reporting that he wants to discharge. We discussed the fact that is a 96-hour hold and that he has been using withdrawal medications at a pace that would not suggest that he is through with his detox nor that he is safe to discharge. We discussed them managing his anxiety through other measures. Mental Status Exam MSE Comments: This is an overweight white male with limited grooming and eye contact in hospital scrubs. No abnormal movements except for mild psychomotor retardation. Mostly cooperative with exam in no acute distress. Speech was more normal rate and volume. Mood described better, affect tearful. Thought process more organized. Thought content: Patient denied suicidal or homicidal ideation, there were no delusions reported but he seemed somewhat paranoid, he endorsed current auditory but denied visual hallucinations. Attention and concentration were improving and memory was more reliable but none were formally tested. He is alert and oriented x3. Insight and judgment are improving, impulse control is limited. Vitals/I&O/Wt Last Vital Signs Temp 97.9 F 01/21/21 06:00 Pulse 74 01/21/21 06:00 Resp 17 01/21/21 06:00 BP 120/77 01/21/21 06:00 Pulse Ox 96 01/21/21 06:00 Weight last 48 hrs Weight 90.718 kg Data NPU : 01/16/21 04:41 01/16/21 04:41 A&P Additional A&P Information (1) History of seizures: (2) Alcohol withdrawal: (3) Acute psychosis: (4) Alcohol withdrawal delirium: Additional A&P Information This is a 45-year-old white male who presents with altered mental status/psychosis/delirium likely secondary to alcohol withdrawal with reports of some suicidal thoughts but mostly appearing to be out of sorts secondary to discontinuation of alcohol who was transferred to the ICU yesterday after this designer writer requested consultation. For increasing concerns that his alcohol withdrawal needed more aggressive management. 1. Continue current medication. We will discontinue Geodon and start Haldol 5 mg p.o. nightly. 2. Continue every 15 minute checks for safety. 3. Encourage individual, group and milieu therapies. 4. Encourage sober living treatment after discharge at the highest level of care to which he is willing to commit. 5. Alcohol withdrawal has resolved. Involuntary Hold Information 96 Hour Hold: 96 Hour Involuntary Admission: No Attestations NPU Medical Necessity Statement*: Psychiatric hospitalization is medically necessary to prevent access to lethal means, to reevaluate medication, and to coordinate a safe discharge. Likely length of stay is 2-3 days. Coding Level of Care Code Acute Laminating Machine Offbearer for Sujey Jon
[2021-01-21 14:00] VITALS: BP 128/87; PULSE 88; RESP 17; TEMP 36.7; O2SAT 97
[2021-01-21] MEDS: ondansetron 4 MG Tablet PO ×2 (14:12→20:36)
[2021-01-21] MEDS: haloperidol 5 mg Tablet PO (20:33)
[2021-01-21] MEDS: divalproex ER 500 mg Tablet (24H) PO (20:33)
[2021-01-21] MEDS: hyDROXYzine 25 mg Capsule 50 MG PO (20:34)
[2021-01-21] MEDS: trazodone 50 mg Tablet PO (20:34)
--- NOTE | 2021-01-21 20:35 | PC.NURSE ---
pt requesting sleep and anxiety meds. pt given trazodone 50mg po for sleep, vistaril 50mg po for anxiety. pt stated the doctor told me he was going to start me on haldol to stop the voices in my head. haldol 5mg po for voices .
[2021-01-21 20:57] VITALS: BP 110/78; PULSE 98; RESP 15; TEMP 37.2; O2SAT 97
--- NOTE | 2021-01-21 22:31 | PC.NURSE ---
pt resting quietly with both eyes closed at this time
[2021-01-22 06:00] VITALS: BP 121/79; PULSE 75; RESP 15; TEMP 36.5; O2SAT 99
[2021-01-22] MEDS: ziprasidone hcl 40 mg Capsule PO (06:34)
[2021-01-22] MEDS: folic acid 1 mg Tablet PO (10:35)
[2021-01-22] MEDS: quetiapine 25 mg Tablet 50 MG PO ×2 (10:35→19:57)
[2021-01-22] MEDS: pantoprazole DR 40 mg Tablet PO (10:35)
[2021-01-22] MEDS: multivitamin therapeutic Tablet 1 TAB PO (10:35)
[2021-01-22] MEDS: thiamine 100 mg Tablet PO (10:35)
--- NOTE | 2021-01-22 11:43 | NPU.GN ---
[facility] Topic:Stressors Psych Education Worksheet General Mood of Group: Yared did not attend group this morning as he wanted to sleep.
[2021-01-22 14:00] VITALS: BP 119/80; PULSE 87; RESP 18; TEMP 36.7; O2SAT 96
--- NOTE | 2021-01-22 14:28 | P.NPUPN_ITS ---
Subjective NPU Subjective: Interval history: Patient presents today reporting that he feels medication is starting to be effective. The Haldol at night he feels optimistic will put him back on track and the Geodon has been discontinued today. He reports that he has been in contact with his family and they are going to be supportive and assisting him and transitioning from being in the hospital to going home. He reports he is eating and sleeping okay and feels like he is doing better overall. Mental Status Exam MSE Comments: This is an overweight white male with limited grooming and eye contact in hospital scrubs. No abnormal movements except for mild psychomotor retardation. Mostly cooperative with exam in no acute distress. Speech was more normal rate and volume. Mood described better, congruent. Thought process more organized. Thought content: Patient denied suicidal or homicidal ideation, there were no delusions reported but he seemed somewhat paranoid, he endorsed current auditory but denied visual hallucinations. Attention and concentration were improving and memory was more reliable but none were formally tested. He is alert and oriented x3. Insight and judgment are improving, impulse control is limited. Vitals/I&O/Wt Last Vital Signs Temp 97.7 F 01/22/21 06:00 Pulse 75 01/22/21 06:00 Resp 15 01/22/21 06:00 BP 121/79 01/22/21 06:00 Pulse Ox 99 01/22/21 06:00 Weight last 48 hrs Weight 90.718 kg Data NPU : 01/16/21 04:41 01/16/21 04:41 A&P Additional A&P Information (1) History of seizures: (2) Alcohol withdrawal: (3) Acute psychosis: (4) Alcohol withdrawal delirium: Additional A&P Information This is a 45-year-old white male who presents with altered mental status/psychosis/delirium likely secondary to alcohol withdrawal with reports of some suicidal thoughts but mostly appearing to be out of sorts secondary to discontinuation of alcohol who was transferred to the ICU yesterday after this justowriter operator requested consultation. For increasing concerns that his alcohol withdrawal needed more aggressive management. 1. Continue current medication. 2. Continue every 15 minute checks for safety. 3. Encourage individual, group and milieu therapies. 4. Encourage sober living treatment after discharge at the highest level of care to which he is willing to commit. 5. Alcohol withdrawal has resolved. Involuntary Hold Information 96 Hour Hold: 96 Hour Involuntary Admission: No Attestations NPU Medical Necessity Statement*: Psychiatric hospitalization is medically necessary to prevent access to lethal means, to reevaluate medication, and to coordinate a safe discharge. Likely length of stay is 1-3 days. Coding Level of Care Code Acute Feed Crusher Operator for Sujey Jon
[2021-01-22] MEDS: hyDROXYzine 25 mg Capsule 50 MG PO (19:56)
[2021-01-22] MEDS: haloperidol 5 mg Tablet PO (19:56)
[2021-01-22] MEDS: divalproex ER 500 mg Tablet (24H) PO (19:56)
[2021-01-22] MEDS: lanolin oint 7 gm 1 APPLIC TOPICAL (19:57)
[2021-01-22] MEDS: trazodone 50 mg Tablet PO (19:57)
--- NOTE | 2021-01-22 19:59 | PC.NURSE ---
Yared was observed resting in bed prior to assessment tonight. He appeared to be calm and not in acute distressed. Patient denies being sob, chest pains, night sweats. Patient stated he does experience some tremors throughout the day. Patient's main complaint is consistency. He's worried that he's not getting his medications as instructed due to the inconsistency of medication administration here. He stated he's only here for his family. He fears that they might be upto something but doesn't know for sure. He stated his family has never cared for him before why start now. We discussed his options here during his treatment. We discussed options on not using alcohol when he leaves. He stated he hears voices and the alcohol quiets the voices in his head. Patient stated he doesn't need to be here and can leave at any point, even tonight if he wanted to. Patient encouraged to speak with the doctor tomorrow during the day to review medications and timing of medications given. Encouraged patient to find non-pharmaceutical activity to help cope with stressors to avoid using alcohol again when he discharges. Patient stated new medication is effective.
[2021-01-22 21:04] VITALS: RESP 16
[2021-01-23 05:53] VITALS: BP 126/87; PULSE 78; RESP 16; TEMP 36.8; O2SAT 96
[2021-01-23] MEDS: pantoprazole DR 40 mg Tablet PO (09:15)
[2021-01-23] MEDS: quetiapine 25 mg Tablet 50 MG PO ×2 (09:15→20:46)
[2021-01-23] MEDS: thiamine 100 mg Tablet PO (09:15)
[2021-01-23] MEDS: multivitamin therapeutic Tablet 1 TAB PO (09:15)
[2021-01-23] MEDS: folic acid 1 mg Tablet PO (09:15)
--- NOTE | 2021-01-23 11:44 | NPU.GN ---
[facility] Topic:Grounding Thoughts, Coping Skills General Mood of Group: Yared did very well and attended group today. Yared was social and in a good mood today.
[2021-01-23 14:00] VITALS: BP 142/92; PULSE 82; RESP 17; TEMP 37.2; O2SAT 98
--- NOTE | 2021-01-23 14:21 | P.NPUPN_ITS ---
Subjective NPU Subjective: Interval history: Patient presents today reporting that he feels like he is making improvements. He reports he did have some occasional perceptual disturbances but he reports that he feels like he is getting some more clarity. He reports he continues to talk with his family and decide what is going to do after discharge. We discussed allowing the changes that we made to manifest and not make any changes today. Mental Status Exam MSE Comments: This is an overweight white male with limited grooming and eye contact in hospital scrubs. No abnormal movements except for mild psychomotor retardation. Mostly cooperative with exam in no acute distress. Speech was more normal rate and volume. Mood described better, affect congruent. Thought process more organized. Thought content: Patient denied suicidal or homicidal ideation, there were no delusions reported or noted, he endorsed limited auditory but denied visual hallucinations. Attention and concentration were improving and memory was more reliable but none were formally tested. He is alert and oriented x3. Insight and judgment are improving, impulse control is limited, but improving. Vitals/I&O/Wt Last Vital Signs Temp 98.2 F 01/23/21 05:53 Pulse 78 01/23/21 05:53 Resp 16 01/23/21 05:53 BP 126/87 01/23/21 05:53 Pulse Ox 96 01/23/21 05:53 Data NPU : 01/16/21 04:41 01/16/21 04:41 A&P Additional A&P Information (1) History of seizures: (2) Alcohol withdrawal: (3) Acute psychosis: (4) Alcohol withdrawal delirium: Additional A&P Information This is a 45-year-old white male who presents with altered mental status/psychosis/delirium likely secondary to alcohol withdrawal with reports of some suicidal thoughts but mostly appearing to be out of sorts secondary to discontinuation of alcohol who was transferred to the ICU yesterday after this service writer advisor requested consultation. For increasing concerns that his alcohol withdrawal needed more aggressive management. 1. Continue current medication. 2. Continue every 15 minute checks for safety. 3. Encourage individual, group and milieu therapies. 4. Encourage sober living treatment after discharge at the highest level of care to which he is willing to commit. 5. Alcohol withdrawal has resolved. Involuntary Hold Information 96 Hour Hold: 96 Hour Involuntary Admission: No Attestations NPU Medical Necessity Statement*: Psychiatric hospitalization is medically necessary to prevent access to lethal means, to reevaluate medication, and to coordinate a safe discharge. Likely length of stay is 1-2 days. Coding Level of Care Code Acute Layboy Tender for Sujey Jon
[2021-01-23 20:33] VITALS: BP 129/70; PULSE 126; RESP 16; O2SAT 98
[2021-01-23] MEDS: trazodone 50 mg Tablet PO (20:44)
[2021-01-23] MEDS: hyDROXYzine 25 mg Capsule 50 MG PO (20:44)
[2021-01-23] MEDS: haloperidol 5 mg Tablet PO (20:44)
[2021-01-23] MEDS: divalproex ER 500 mg Tablet (24H) PO (20:44)
[2021-01-24 06:00] VITALS: RESP 16
[2021-01-24] MEDS: nicotine 21 mg Patch 1 PATCH TRANSDERMA (09:09)
[2021-01-24] MEDS: thiamine 100 mg Tablet PO (09:10)
[2021-01-24] MEDS: pantoprazole DR 40 mg Tablet PO (09:10)
[2021-01-24] MEDS: quetiapine 25 mg Tablet 50 MG PO ×2 (09:10→20:55)
[2021-01-24] MEDS: multivitamin therapeutic Tablet 1 TAB PO (09:10)
[2021-01-24] MEDS: folic acid 1 mg Tablet PO (09:10)
--- NOTE | 2021-01-24 12:54 | NPU.GN ---
[facility] Topic: Self Care Bingo/ Crisis Plan Work Sheet General Mood of Group: Yared did attend and participate in group today. His demeanour was good and he was social in group with this check writer and others. Yared seems more stable. He reported to this check writer he is not having any suicidal or homicidal thoughts at this time. He is ready to go home as he reported to this check writer.
[2021-01-24 14:00] VITALS: BP 122/85; PULSE 84; RESP 17; TEMP 37.3; O2SAT 97
--- NOTE | 2021-01-24 15:25 | W.PM.NPUPNS ---
Subjective NPU Subjective: Interval history: Patient presents today reporting that he thinks he is doing better each day. He reports that he is been talking to his mother about how they might get him back home. He endorses having some limited hallucinations and feeling less paranoid and worried. He reports having some issues with sleep and some worries about being able to get his medication. Especially concerned about the cost. We reported that we would work with the treatment team to make sure that something that is clarified before discharge. He reports that his mother would probably be able to come up on Friday.. Mental Status Exam MSE Comments: This is an overweight white male with limited grooming and eye contact in hospital scrubs. No abnormal movements except for mild psychomotor retardation. Mostly cooperative with exam in no acute distress. Speech was more normal rate and volume. Mood described better, affect congruent. Thought process more organized. Thought content: Patient denied suicidal or homicidal ideation, there were no delusions reported or noted, he endorsed limited auditory but denied visual hallucinations. Attention and concentration were improving and memory was more reliable but none were formally tested. He is alert and oriented x3. Insight and judgment are improving, impulse control is limited, but improving. Vitals/I&O/Wt Last Vital Signs Temp 99.1 F 01/24/21 14:00 Pulse 84 01/24/21 14:00 Resp 17 01/24/21 14:00 BP 122/85 01/24/21 14:00 Pulse Ox 97 01/24/21 14:00 Data NPU : 01/16/21 04:41 01/16/21 04:41 A&P Additional A&P Information (1) History of seizures: (2) Alcohol withdrawal: (3) Acute psychosis: (4) Alcohol withdrawal delirium: Additional A&P Information This is a 45-year-old white male who presents with altered mental status/psychosis/delirium likely secondary to alcohol withdrawal with reports of some suicidal thoughts but mostly appearing to be out of sorts secondary to discontinuation of alcohol who was transferred to the ICU yesterday after this video game script writer requested consultation. For increasing concerns that his alcohol withdrawal needed more aggressive management. 1. Continue current medication. 2. Continue every 15 minute checks for safety. 3. Encourage individual, group and milieu therapies. 4. Encourage sober living treatment after discharge at the highest level of care to which he is willing to commit. 5. Alcohol withdrawal has resolved. Involuntary Hold Information 96 Hour Hold: 96 Hour Involuntary Admission: No Attestations NPU Medical Necessity Statement*: Psychiatric hospitalization is medically necessary to prevent access to lethal means, to reevaluate medication, and to coordinate a safe discharge. Likely length of stay is 1-2 days. Coding Level of Care Code Acute Camp Boss for Sujey Jon
[2021-01-24] MEDS: haloperidol 5 mg Tablet PO (20:55)
[2021-01-24] MEDS: divalproex ER 500 mg Tablet (24H) PO (20:55)
[2021-01-24 22:00] VITALS: BP 144/84; PULSE 79; RESP 16; O2SAT 97
[2021-01-25 06:00] VITALS: BP 128/81; PULSE 79; RESP 16; O2SAT 95
[2021-01-25] MEDS: nicotine 21 mg Patch 1 PATCH TRANSDERMA (08:27)
[2021-01-25] MEDS: folic acid 1 mg Tablet PO (08:28)
[2021-01-25] MEDS: lanolin oint 7 gm 1 APPLIC TOPICAL (08:28)
[2021-01-25] MEDS: quetiapine 25 mg Tablet 50 MG PO ×2 (08:28→20:55)
[2021-01-25] MEDS: multivitamin therapeutic Tablet 1 TAB PO (08:28)
[2021-01-25] MEDS: pantoprazole DR 40 mg Tablet PO (08:29)
[2021-01-25] MEDS: thiamine 100 mg Tablet PO (08:29)
[2021-01-25] MEDS: hyDROXYzine 25 mg Capsule 50 MG PO ×3 (09:10→20:56)
--- NOTE | 2021-01-25 12:31 | NPU.GN ---
[facility] Topic:Positive Thinking / Positive Affirmations General Mood of Group: Yared did particpate and attend in group. He was social with others and respectful. He shared his experiences with the group.
[2021-01-25 13:58] VITALS: BP 116/71; PULSE 73; RESP 16; TEMP 37.2; O2SAT 96
--- NOTE | 2021-01-25 17:21 | P.NPUPN_ITS ---
Subjective NPU Subjective: Interval history: Patient presents today reporting some anxiety about how to build to manage himself outside of the hospital but reporting that he feels his symptoms are continuing to improve in a way that makes him feel more confident. He reports he is eating and sleeping better. We discussed the plan for discharge on Friday with his mother coming to pick him up. Mental Status Exam MSE Comments: This is an overweight white male with limited grooming and eye contact in hospital scrubs. No abnormal movements except for mild psychomotor retardation. Mostly cooperative with exam in no acute distress. Speech was more normal rate and volume. Mood described better, affect congruent. Thought process more organized. Thought content: Patient denied suicidal or homicidal ideation, there were no delusions reported or noted, he endorsed limited auditory but denied visual hallucinations. Attention and concentration were improving and memory was more reliable but none were formally tested. He is alert and oriented x3. Insight and judgment are improving, impulse control is limited, but improving. Vitals/I&O/Wt Last Vital Signs Temp 97.9 F 01/25/21 20:37 Pulse 80 01/25/21 20:37 Resp 18 01/25/21 20:37 BP 152/96 01/25/21 20:37 Pulse Ox 98 01/25/21 20:37 Data NPU : 01/16/21 04:41 01/16/21 04:41 A&P Additional A&P Information (1) History of seizures: (2) Alcohol withdrawal: (3) Acute psychosis: (4) Alcohol withdrawal delirium: Additional A&P Information This is a 45-year-old white male who presents with altered mental status/psychosis/delirium likely secondary to alcohol withdrawal with reports of some suicidal thoughts but mostly appearing to be out of sorts secondary to discontinuation of alcohol who was transferred to the ICU yesterday after this process description writer requested consultation. For increasing concerns that his alcohol withdrawal needed more aggressive management. 1. Continue current medication. 2. Continue every 15 minute checks for safety. 3. Encourage individual, group and milieu therapies. 4. Encourage sober living treatment after discharge at the highest level of care to which he is willing to commit. 5. Alcohol withdrawal has resolved. Involuntary Hold Information 96 Hour Hold: 96 Hour Involuntary Admission: No Attestations NPU Medical Necessity Statement*: Psychiatric hospitalization is medically necessary to prevent access to lethal means, to reevaluate medication, and to coordinate a safe discharge. Likely length of stay is 1-2 days. Plan for discharge Friday. Coding Level of Care Code Acute Steel Construction Worker for Sujey Jon
[2021-01-25 20:37] VITALS: BP 152/96; PULSE 80; RESP 18; TEMP 36.6; O2SAT 98
[2021-01-25] MEDS: trazodone 50 mg Tablet PO (20:55)
[2021-01-25] MEDS: haloperidol 5 mg Tablet PO (20:56)
[2021-01-25] MEDS: divalproex ER 500 mg Tablet (24H) PO (20:56)
[2021-01-26 06:00] VITALS: RESP 16
[2021-01-26] MEDS: quetiapine 25 mg Tablet 50 MG PO ×2 (08:47→20:19)
[2021-01-26] MEDS: nicotine 21 mg Patch 1 PATCH TRANSDERMA (08:47)
[2021-01-26] MEDS: multivitamin therapeutic Tablet 1 TAB PO (08:48)
[2021-01-26] MEDS: folic acid 1 mg Tablet PO (08:48)
[2021-01-26] MEDS: pantoprazole DR 40 mg Tablet PO (08:48)
[2021-01-26] MEDS: thiamine 100 mg Tablet PO (08:48)
--- NOTE | 2021-01-26 10:42 | NPU.GN ---
[facility] Topic: Good Secrets Vs. Bad Secrets Psycho Therapy General Mood of Group: Yared did attend and participate in group today. He was getting frustrated with two female patients that were being loud and distracting group therapy. This display card writer redirected the patients in group at least 4 times to get back to the group therapy activity. Yared did leave group early as he was frustrated.
[2021-01-26 14:00] VITALS: BP 139/71; PULSE 89; RESP 17; TEMP 36.7; O2SAT 97
--- NOTE | 2021-01-26 17:43 | W.PM.NPUPNS ---
Subjective NPU Subjective: Interval history: Into today reporting continued improvement in overall reduction in symptoms. He is excited about his mother picking him up tomorrow and does have some anxiety about taking his new improved functionality into the real world. We reviewed his medication including the increase in his Haldol to 5 mg p.o. twice daily. We reviewed how he would get the medication at least for this first month. He was comfortable with the plan and looks forward to discharge in the morning. Mental Status Exam MSE Comments: This is an overweight white male with adequate grooming and eye contact in hospital scrubs. No abnormal movements. Cooperative with exam in no acute distress. Speech was normal rate and volume. Mood described pretty good, affect congruent. Thought process more organized. Thought content: Patient denied suicidal or homicidal ideation, there were no delusions reported or noted, he denied auditory or visual hallucinations. Attention and concentration were improving and memory was more reliable but none were formally tested. He is alert and oriented x3. Insight and judgment are improving, impulse control is improving. Vitals/I&O/Wt Last Vital Signs Temp 98.2 F 01/26/21 21:22 Pulse 79 01/26/21 21:22 Resp 18 01/26/21 21:22 BP 137/89 01/26/21 21:22 Pulse Ox 97 01/26/21 21:22 Data NPU : 01/16/21 04:41 01/16/21 04:41 A&P Additional A&P Information (1) History of seizures: (2) Alcohol withdrawal: (3) Acute psychosis: (4) Alcohol withdrawal delirium: Additional A&P Information This is a 45-year-old white male who presents with altered mental status/psychosis/delirium likely secondary to alcohol withdrawal with reports of some suicidal thoughts but mostly appearing to be out of sorts secondary to discontinuation of alcohol who was transferred to the ICU yesterday after this telegraphic typewriter repairer requested consultation. For increasing concerns that his alcohol withdrawal needed more aggressive management. 1. Continue current medication. 2. Continue every 15 minute checks for safety. 3. Encourage individual, group and milieu therapies. 4. Encourage sober living treatment after discharge at the highest level of care to which he is willing to commit. 5. Alcohol withdrawal has resolved. 6. Plan for discharge in the morning. Involuntary Hold Information 96 Hour Hold: 96 Hour Involuntary Admission: No Attestations NPU Medical Necessity Statement*: Psychiatric hospitalization is medically necessary to prevent access to lethal means, to reevaluate medication, and to coordinate a safe discharge. Plan for discharge in the morning. Coding Level of Care Code Acute Line Cook for Sujey Jon
[2021-01-26] MEDS: ondansetron 4 MG Tablet PO (18:21)
[2021-01-26] MEDS: hyDROXYzine 25 mg Capsule 50 MG PO ×2 (18:21→20:19)
[2021-01-26] MEDS: trazodone 50 mg Tablet PO (20:19)
[2021-01-26] MEDS: divalproex ER 500 mg Tablet (24H) PO (20:19)
[2021-01-26] MEDS: haloperidol 5 mg Tablet PO (20:19)
[2021-01-26 21:22] VITALS: BP 137/89; PULSE 79; RESP 18; TEMP 36.8; O2SAT 97
[2021-01-27 06:00] VITALS: RESP 16
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
[2021-01-27] MEDS: thiamine 100 mg Tablet PO (08:13)
[2021-01-27] MEDS: multivitamin therapeutic Tablet 1 TAB PO (08:13)
[2021-01-27] MEDS: pantoprazole DR 40 mg Tablet PO (08:13)
[2021-01-27] MEDS: quetiapine 25 mg Tablet 50 MG PO (08:13)
[2021-01-27] MEDS: haloperidol 5 mg Tablet PO (08:13)
[2021-01-27] MEDS: folic acid 1 mg Tablet PO (08:13)
[2021-01-27] MEDS: lanolin oint 7 gm 1 APPLIC TOPICAL (09:23)
[2021-01-27 09:50] VITALS: BP 116/78; PULSE 78; RESP 16; TEMP 36.4
== END 2021-01-27 10:03 | disposition home or self-care (01) | DRG 885 ==
LOC: NP 03:13 → ICU 01-14 20:57 → NP 01-16 18:57
PROVIDERS: Hospitalist; Internal Medicine; Admitting Provider Psychiatry & Neurology Child & Adolescent Psychiatry; Visit Provider Psychiatry & Neurology Psychiatry
DX: F23 Brief psychotic disorder (principal); F10.251 Alcohol dependence with alcohol-induced psychotic disorder with hallucinations; R45.851 Suicidal ideations; F33.9 Major depressive disorder, recurrent, unspecified; F10.231 Alcohol dependence with withdrawal delirium; D69.6 Thrombocytopenia, unspecified; E86.0 Dehydration; R61 Generalized hyperhidrosis; R11.0 Nausea; R51.9 Headache, unspecified; R56.9 Unspecified convulsions; R74.8 Abnormal levels of other serum enzymes; R00.0 Tachycardia, unspecified; R26.81 Unsteadiness on feet; F17.210 Nicotine dependence, cigarettes, uncomplicated; Z78.1 Physical restraint status; Z91.51 Personal history of suicidal behavior; Z81.8 Family history of other mental and behavioral disorders; Z81.3 Family history of other psychoactive substance abuse and dependence; Z62.810 Personal history of physical and sexual abuse in childhood; Z59.00 Homelessness unspecified
CPT/HCPCS: 36415; 36416; 80053; 80184; 82140; 82550; 82962; 83735; 84100; 85025; 85610; 96372; 97150; 97165; J1200; J3411; J3475; J3490; J7030; Q0162